=== PATIENT | female | born 2000 | race Caucasian/White ===

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

== ENCOUNTER 2024-02-12 19:49 | Emergency (ER) | payer MEDICAID ==
[~2024-02-12] VITALS: Ht 175.3 cm; Wt 78.7 kg
[2024-02-12 20:34] LABS: BASOPHILS % (AUTO) 0.3 % (0-1); EOSINOPHILS # (AUTO) 0.1 X10'3 (0-0.9); EOSINOPHILS % (AUTO) 0.4 % (0-6); HEMATOCRIT 38.9 % (35.0-45.0); HEMOGLOBIN 13.2 g/dl (12.0-16.0); LYMPHOCYTES # (AUTO) 2.4 X10'3 (1.1-4.8); LYMPHOCYTES % (AUTO) 18.2 % (21-51); MEAN CORPUSCULAR HEMOGLOBIN 31.9 PG (27.0-31.0); MEAN CORPUSCULAR VOLUME 93.7 FL (78-98); MEAN PLATELET VOLUME 7.4 FL (7.4-10.4); MONOCYTES # (AUTO) 0.8 X10'3 (0-0.9); MONOCYTES % (AUTO) 5.9 % (2-12); NEUTROPHILS # (AUTO) 10.1 X10'3 (1.8-7.7); NEUTROPHILS % (AUTO) 75.2 % (42-75); PLATELET COUNT 394 X10'3 (140-440); RED BLOOD COUNT 4.16 X10'6 (4.20-5.60); RED CELL DISTRIBUTION WIDTH 14.7 % (11.5-14.5); WHITE BLOOD COUNT 13.5 X10'3 (4.5-11.0)
[2024-02-12 20:43] LABS: ALANINE AMINOTRANSFERASE 16 U/L (12-78); ALBUMIN/GLOBULIN RATIO 0.8 (1.1-1.5); ALKALINE PHOSPHATASE 68 IU/L (46-116); ANION GAP 9 (8-16); ASPARTATE AMINO TRANSFERASE 7 U/L (10-37); BILIRUBIN,TOTAL 0.2 MG/DL (0.1-1.0); BLOOD UREA NITROGEN 5 MG/DL (7-18); BUN/CREATININE RATIO 9.1 (10.0-20.0); CALCIUM 8.9 MG/DL (8.5-10.1); CHLORIDE 104 MMOL/L (99-107); CREATININE 0.55 MG/DL (0.40-0.90); GLUCOSE 84 MG/DL (70-104); POTASSIUM 3.5 MMOL/L (3.5-5.1); SODIUM 137 MMOL/L (135-145); TOTAL CARBON DIOXIDE 23.6 MMOL/L (24-32); TOTAL PROTEIN 6.8 G/DL (6.4-8.2); eCRCL 169 ML/MIN; eGFR > 90 ML/MIN
[2024-02-12 20:51] LABS: PRO BRAIN NATRIURETIC PEPTIDE 31 PG/ML (0-125)
[2024-02-12] MEDS ORDERED: hyDROXYzine 50 mg/ml injection ***IM only IM ONE (21:35)
[2024-02-12] MEDS ORDERED: SERT25TA PO (21:37)
[2024-02-12] MEDS ORDERED: HYDR-3686 PO (21:38)
[2024-02-12 21:56] VITALS: BP 114/70; PULSE 87; RESP 14; TEMP 99.3; O2SAT 98
== END 2024-02-12 22:01 | disposition home or self-care (01) ==
LOC: ER 19:49
DX: O99.342 Other mental disorders complicating pregnancy, second trimester (principal); O99.352 Diseases of the nervous system complicating pregnancy, second trimester; O26.892 Other specified pregnancy related conditions, second trimester; F41.0 Panic disorder [episodic paroxysmal anxiety]; G89.29 Other chronic pain; Z3A.15 15 weeks gestation of pregnancy; Z79.1 Long term (current) use of non-steroidal anti-inflammatories (NSAID); Z79.899 Other long term (current) drug therapy; Z59.00 Homelessness unspecified
CPT/HCPCS: 36415; 80053; 83880; 84484; 85025; 93005; 99284

== ENCOUNTER 2024-07-04 12:38 | Emergency (ER) | payer MEDICAID ==
[~2024-07-04] VITALS: Ht 175.3 cm; Wt 83.2 kg
[~2024-07-04 12:38] MED LIST changes: +SERT25TA PO
[2024-07-04 14:26] VITALS: BP 114/67; PULSE 75; RESP 15; O2SAT 97
== END 2024-07-04 14:28 | disposition home or self-care (01) ==
LOC: ER 12:38
DX: O99.613 Diseases of the digestive system complicating pregnancy, third trimester (principal); R10.84 Generalized abdominal pain; G89.29 Other chronic pain; M54.9 Dorsalgia, unspecified; Z3A.34 34 weeks gestation of pregnancy; Z79.899 Other long term (current) drug therapy; Z98.890 Other specified postprocedural states
CPT/HCPCS: 99284

== ENCOUNTER 2025-03-10 18:14 | Emergency (ER) | payer MEDICAID ==
[~2025-03-10] VITALS: Ht 175.3 cm; Wt 74.4 kg
[2025-03-10 18:15] VITALS: BP 137/95; PULSE 100; TEMP 99.2; O2SAT 100
[2025-03-10 19:06] LABS: STREP A SCREEN NEGATIVE (Neg)
[2025-03-10] MEDS ORDERED: IBUP-1984 PO (19:15)
[2025-03-10] MEDS ORDERED: PENI500T2 PO (19:15)
--- NOTE | 2025-03-10 19:15 | Physician Documentation ---
History of Present Illness ~ Chief Complaint: Sore Throat Stated Complaint: THROAT PAIN Time Seen by MD: 19:08 Primary Medical Doctor: NONE HPI 24-year-old female who is unkempt presents to the emergency department with complaint of sore throat in tonsil stones primarily on the right greater than left. Reports painful swallowing. No reported fever, trismus or stridor. Medication Reconciliation Allergies: Coded Allergies: No Known Allergies (Unverified , 02/12/24) Scheduled Acetaminophen (Tylenol), 1-2 TABLET PO QID Ibuprofen* (Motrin*), 400 MG PO Q6H Penicillin V Potassium* (Penicillin VK*), 1 TAB PO Q8H Sertraline Hcl* (Zoloft*), 1 TAB PO DAILY Past Medical History Past Medical History: Chronic Back Pain Past Surgical History: orthopedic surgeries Alcohol Use: None Drug Use: none Lives In: Home Occupation: student Review of Systems All Other Systems at this time: Reviewed and Negative Constitutional: Reports: see HPI Physical Exam Vital Signs: RN Vital Signs have been reviewed: Yes, Temperature: 99.2, Source: Oral, Heart Rate: 100, Respiratory Rate: 16, BP: 137/95, Pulse Oximetry: 100, Weight: 74.400 Oxygen Flow Rate: 0 General Appearance: alert, WD/WN, mild distress Eye Lid: normal inspection Conjunctiva: normal inspection Pupils/EOM/Fundus: PERRLA Mouth/Throat: tonsillar exudate, tonsillar erythema, tonsillar hypertrophy, other (Tonsilliths on the right); No: trismus, uvula swelling Teeth/Gums: gingiva redness Face: normal inspection Head: normal inspection Neck: non-tender Respiratory: lungs clear Cardiovascular: normal peripheral pulses Gastrointestinal: normal palpation Skin: normal color Lymphatic: no adenopathy Neurologic: oriented x4 Psychiatric: normal mood/affect Progress Results/Orders Results/Orders Completed Orders - JAVAN CASAS Ketorolac Trometh 15mg/Ml Vial (Toradol (03/10/25 19:15) Penicillin V Potassium Tablet (Penicilli (03/10/25 19:15) Vital Signs 03/10/25 03/10/25 18:15 20:42 Temp 99.2 Pulse 100 Resp 16 16 B/P (MAP) 137/95 Pulse Ox 100 O2 Flow Rate 0 Laboratory Tests Test 03/10/25 18:21 Group A Streptococcus Rapid Negative Microbiology Date/Time Source Procedure Growth Status 03/10/25 19:06 Throat Throat Culture - Preliminary NORMAL ORAL EDGARDO PRESENT.... Resulted Medical Decision Making Additional information obtaine: N/A Findings Examination history consistent with pharyngitis likely that of bacterial etiology as evidenced with exudate, tonsillar erythema and hypertrophy. We will begin penicillin and provide ibuprofen for relief. No clear indication for steroid therapy at this time. Group a beta strep screening negative. Patient is discharged without clinical concern for peritonsillar abscess, Edward's angina or retropharyngeal abscess or tracheitis. Ear Diff. Dx: Considerations: Include: Other (Noncontributory) Eye Diff. Dx: Considerations: Include: Other (Noncontributory) Nose Diff. Dx: Considerations: Include: Other Tooth Diff. Dx: Considerations: Include: Other (Noncontributory) Throat Diff Dx: Considerations: Include: AIDS, Epiglottitis, Esophageal candidiasis, Hand foot mouth disease, Herpangina, Herpetic stomatitis, Herpes simplex, Infection mononucleosis, Immunodeficiency, Edward's angina, Peritonsillar abscess, Peritonsillar cellulitis, Pharyngitis-diphtheria, Pharyngitis-strepococcal, Pharyngitis-viral, Thrush, URI, Other Departure Disposition: HOME / SELF CARE / HOMELESS Impression: Primary Impression: Acute pharyngitis Qualified Codes: J02.9 - Acute pharyngitis, unspecified Additional Impression: Tonsillolith Condition: Stable Discharge Instructions: Pharyngitis Additional Instructions: Please begin medications as directed make follow up appointment with your primary care physician. Referrals: NO PRIMARY CARE PROVIDER (PCP) Prescriptions Ibuprofen* (Motrin*) 400 Mg Tablet 400 MG PO Q6H for 10 Days, #30 TAB Prov: JAVAN CASAS 03/10/25 Penicillin V Potassium* (Penicillin VK*) 500 Mg Tablet 1 TAB PO Q8H for 10 Days, #30 TAB Prov: JAVAN CASAS 03/10/25 Education Educated: Patient Educated regarding: diagnosis, treatment, prognosis, need for follow up Signature Scribe Signature: . Attestation: . JAVAN CASAS Mar 10, 2025 19:15
[2025-03-10] MEDS: penicillin V potassium 500mg tablet PO ONE (20:41)
[2025-03-10 20:42] VITALS: RESP 16
[2025-03-10] MEDS: ketorolac trometh 15mg/ml vial 15 MG/ML ML IM ONE (20:42)
== END 2025-03-10 20:58 | disposition home or self-care (01) ==
LOC: ER 18:15
DX: J35.8 Other chronic diseases of tonsils and adenoids (principal); J02.9 Acute pharyngitis, unspecified; G89.29 Other chronic pain; Z79.899 Other long term (current) drug therapy; Z98.890 Other specified postprocedural states
CPT/HCPCS: 87081; 87880; 96372; 99283; J1885